=== PATIENT | female | born 2000 | race Hispanic/Latino ===

== ENCOUNTER 2019-05-02 12:55 | Emergency (ER) | payer OTHER, SELFPAY ==
--- NOTE | ~2019-05-02 | CT_ITS ---
EXAMINATION: CT abdomen pelvis w con EXAM DATE: 05/02/2019 18:43 INDICATION: Right lower quadrant pain. TECHNIQUE: Spiral CT of the abdomen and pelvis was performed following intravenous injection of 100 m L Omnipaque 350. Axial, coronal and sagittal images were reviewed. The dose-length product (DLP) fo r this examination was 742.15 mGy-cm. The exposure was tailored according to patient size (auto mA e xposure control), and iterative reconstruction (ASIR) was used as additional dose reduction technique . There is no prior study for comparison. FINDINGS: The liver, spleen, adrenal glands and pancreas are unremarkable. Gallbladder is unremarkab le. No biliary obstruction. Portal and splenic veins are patent. Kidneys enhance symmetrically. T here is no hydronephrosis. The uterus and ovaries are unremarkable, no adnexal mass. The bladder i s unremarkable. There is no retroperitoneal or pelvic lymphadenopathy. The appendix is large in caliber but does not appear obstructed and there is no adjacent inflammation . The stomach and small bowel are unremarkable. There is expected amount of colonic stool. No charles e intraperitoneal gas. The heart is normal in size. There are no pericardial or pleural effusions. The lung bases are unremarkable. There are no osteoblastic or osteolytic lesions identified. IMPRESSION: 1. No acute intra-abdominal findings. Reviewed, dictated and finalized at location A. ING MACHINE OPERATOR
[2019-05-02 14:01] VITALS: BP 127/77; PULSE 66; RESP 14; TEMP 36.6; O2SAT 98
[2019-05-02 14:19] LABS: Basophils Percent Auto 0.4 % (0.2-1.2); Eosinophils Absolute Auto 0.1 K/mm3 (0-0.3); Eosinophils Percent Auto 1.2 % (0-4.4); Hemoglobin 13.6 g/dL (12.0-15.0); Immature Granulocyte Absolute 0.02 K/mm3 (0.00-0.031); Immature Granulocyte Percent A 0.3 % (0-0.5); Lymphocytes Absolute Auto 3.44 K/mm3 (0.9-3.2); Lymphocytes Percent Auto 45.6 % (18.3-44.2); Mean Corpuscular HGB Conc 32.4 g/dl (32-36); Mean Corpuscular Hemoglobin 29.9 pg (26-34); Mean Corpuscular Volume 92.3 fl (80-100); Mean Platelet Volume 9.5 fl (7.4-10.4); Monocytes Absolute Auto 0.6 K/mm3 (0.1-0.6); Monocytes Percent Auto 7.5 % (2.6-8.5); Neutrophils Absolute Auto 3.4 K/mm3 (1.3-6.7); Platelet Count Result 318 k/mm3 (150-375); Red Blood Count 4.55 M/mm3 (4.2-5.4); Red Cell Distribution Width 12.5 % (11.5-14.5); White Blood Count 7.6 K/mm3 (4.5-10.0)
[2019-05-02 14:29] LABS: Alanine Aminotransferase 15 U/L (4-35); Albumin Level 4.3 g/dL (3.7-5.6); Alkaline Phosphatase 47 U/L (45-116); Aspartate Amino Transferase 24 U/L (14-36); Bilirubin,Total 0.3 mg/dL (0.2-1.3); Blood Urea Nitrogen 8 mg/dL (8-21); Calcium 9.2 mg/dL (8.9-10.7); Carbon Dioxide 24 mmol/L (22-30); Chloride 100 mmol/L (98-107); Estimated Glomerular Filt Rate > 60; Glucose 87 mg/dL (65-105); Lipase 47 U/L (23-300); Sodium 136 mmol/L (134-143)
--- NOTE | 2019-05-02 17:25 | ED.ABDPAIN ---
HPI - Abdominal Pain General Chief Complaint: Abdominal Pain <TANYA Wang Last Filed: 05/02/19 18:55> Stated Complaint: abd pain <TANYA Wang Filed: 05/02/19 18:55> Time Seen by Provider: 05/02/19 16:37 <TANYA Wang Filed: 05/02/19 18:55> Source: patient and family <TANYA Wang Filed: 05/02/19 18:55> Mode of arrival: ambulatory <ATNYA Wang Filed: 05/02/19 18:55> Limitations: no limitations <TANYA Wang Filed: 05/02/19 18:55> History of Present Illness HPI narrative: Patient is a 18-year-old female who presents to emergency department for evaluation of right lower quadrant abdominal pain presenting from urgent care patient notes pain to the right lower quadrant that initially was epigastric periumbilical in nature patient has had a few loose stools but denies nausea or vomiting. Patient denies similar occurrence in the past. Patient has not taken anything for her symptoms patient on arrival in the room in no distress pain is worse with activity and movement <TANYA Wang Filed: 05/02/19 18:55> Related Data Home Medications: Home Medications Medication Instructions Recorded Confirmed Control Pills 05/02/19 <TANYA Wang Last Filed: 05/02/19 18:55> Allergies/Adverse Reactions: Allergies Allergy/AdvReac Type Severity Reaction Status Date / Time No Known Allergies Allergy Verified 05/02/19 11:58 <TANYA Wang Last Filed: 05/02/19 18:55> Review of Systems Review of Systems: Narrative: CONSTITUTIONAL: Denies fever, chills, or sweats. EYES: Denies redness, or discharge. ENT: Denies rhinorrhea, congestion, sore throat, or otalgia. RESPIRATORY: Denies cough or dyspnea. GASTROINTESTINAL: Denies nausea, vomiting GENITOURINARY: Denies dysuria or hematuria. SKIN: Denies rash or wound MUSCULOSKELETAL: Denies back pain, joint pain, or myalgia. NEUROLOGIC: Denies headache, or weakness. <TANYA Wang Filed: 05/02/19 18:55> [facility] Past Medical History Medical History: Medical History Hx of migraines IBS (irritable bowel syndrome) <Duane Edge PA-C - Last Filed: 05/02/19 18:55> Surgical History Surgical History: Surgical History No history of previous surgery <Duane Edge PA-C - Last Filed: 05/02/19 18:55> Social History Social History: Social History Smoking status: Never smoker Gender identity (if verbalized by the patient): Female <Duane Edge PA-C - Last Filed: 05/02/19 18:55> Exam Narrative: Exam Narrative: GENERAL: Well-appearing, well-nourished, and in no acute distress. HEAD: Normocephalic, atraumatic. EYES: PERRLA and EOMI. ENT: Nares clear, no rhinorrhea or epistaxis. Mucous membranes moist. Oropharynx without tonsillar hypertrophy exudate or other lesions. CHEST: Clear to auscultation. No respiratory distress. No wheezes rales or rhonchi HEART: Regular rate and rhythm. No murmur heard. Normal peripheral pulses. ABDOMEN: Soft, focal right lower quadrant tenderness to palpation, nondistended, normal active bowel sounds. EXTREMITIES: Normal range of motion. No edema. SKIN: Warm, dry, no rash. NEURO: No focal deficits. Alert and oriented x3. PSYCH: Normal mood and affect. <Duane Edge PA-C - Last Filed: 05/02/19 18:55> Course Course Emergency Course: Patient in the room in no distress aware of case findings treatment plan and diagnosis agreeing to follow-up as directed or to return if symptoms worsen <Duane Edge PA-C - Last Filed: 05/02/19 18:55> Vital Signs Vital signs: Vital Signs Temperature 97.8 F 05/02/19 14:01 Pulse Rate 66
[2019-05-02 17:36] LABS: Add Urine Microscopic? YES; Appearance Urine Clear (Clear); Bacteria Urine Trace /hpf; Bilirubin Urine Negative (Negative); Blood Urine Negative (Negative); Color Urine Yellow (Yellow); Glucose Urine UA Negative (Negative); Ketones Urine Negative (Negative); Leukocyte Esterase Ur Negative LEU/UL (Negative); Mucus Urine Moderate /lpf; Nitrate Urine Negative (Negative); Protein Urine 1+ mg/dL (Negative); RBC Urine 0-2 /hpf (0-2); Specific Grav Ur 1.029 (1.001-1.035); Squamous Epithelial Cell Urine Few /hpf (Few); Urobilinogen Urine Negative mg/dL (<2.0); WBC Urine 0-3 /hpf
[2019-05-02] MEDS: LACTATED RINGERS 1,000 ML 999 ML IV CONT (17:54)
[2019-05-02 19:18] VITALS: BP 126/80; PULSE 63; RESP 18; O2SAT 100
== END 2019-05-02 19:18 | disposition home or self-care (01) ==
PROVIDERS: Emergency Medicine; Emergency Provider General Practice
DX: R10.31 Right lower quadrant pain (principal); K58.9 Irritable bowel syndrome, unspecified
CPT/HCPCS: 36415; 74177; 80053; 81001; 81003; 81025; 83690; 85025; 96360; 99284; J7120; Q9967

== ENCOUNTER 2020-05-01 12:31 | Emergency (ER) | payer OTHER, SELFPAY ==
[2020-05-01 12:34] VITALS: BP 138/91; PULSE 60; RESP 20; TEMP 36.4; O2SAT 100
--- NOTE | 2020-05-01 12:58 | ED.URI ---
HPI - URI/Sore Throat General Chief Complaint: Upper Respiratory Infection Stated Complaint: ST Time Seen by Provider: 05/01/20 12:39 Source: patient Mode of arrival: ambulatory Limitations: no limitations History of Present Illness HPI Narrative: 19 years old female presents with headache started 1 week ago, sore throat, coughing, nasal congestion 5 days ago, tested negative for Covid and April 28, exposed to her brother who was tested positive for Covid on April 23. Patient lives with her boyfriend who is asymptomatic. Related Data Home Medications Medication Instructions Recorded Confirmed Control Pills 05/02/19 Allergies Allergy/AdvReac Type Severity Reaction Status Date / Time No Known Allergies Allergy Verified 05/01/20 12:36 Review of Systems Review of Systems: Narrative: CONSTITUTIONAL: Denies fever, chills, or sweats. EYES: Denies visual changes, redness, or discharge. ENT: Denies rhinorrhea, congestion, sore throat, or otalgia. CARDIOVASCULAR: Denies chest pain, palpitations, or edema. RESPIRATORY: Denies cough or dyspnea. GASTROINTESTINAL: Denies abdominal pain, nausea, vomiting, or diarrhea. GENITOURINARY: Denies dysuria or hematuria. SKIN: Denies rash or itching. MUSCULOSKELETAL: Denies back pain, joint pain, or myalgia. NEUROLOGIC: Denies headache, numbness, or weakness. PSYCHIATRIC: Denies anxiety or depression. [facility] Past Medical History Medical History (Updated 05/01/20 @ 14:19 by Clau Chapa MD) Hx of migraines IBS (irritable bowel syndrome) Surgical History Surgical History No history of previous surgery Social History Social History Smoking status: Never smoker Gender identity (if verbalized by the patient): Female Exam Narrative: Exam Narrative: General appearance: Well-developed, well-nourished Skin: Normal color Head: Normocephalic, nontraumatic Eyes: Clear conjunctiva ENT: Erythematous oropharynx, ears normal, nose normal Neck: Supple, nontender Chest and respiratory: Airway patent, no respiratory distress, no accessory muscle use Heart: Regular rate/rhythm Abdomen: Soft, nontender, no organomegaly, quiet bowel sounds Vascular: Normal peripheral pulses, normal capillary refill. Musculoskeletal: Normal range of motion, nontender back Neurologic: Alert and oriented ?3, [employer] MACHINE OPERATOR is normal as tested, no gross motor deficit Course Course Emergency Course: Stable Vital Signs Vital signs: Vital Signs Temperature 36.4 C 05/01/20 12:34 Pulse Rate 60 05/01/20 12:34 Respiratory Rate 20 05/01/20 12:34 Blood Pressure 138/91 H 05/01/20 12:34 Pulse Oximetry 100 05/01/20 12:34 Temperature 36.4 C 05/01/20 12:34 Pulse Rate 60 05/01/20 12:34 Respiratory Rate 20 05/01/20 12:34 Blood Pressure 138/91 H 05/01/20 12:34 Pulse Oximetry 100 05/01/20 12:34 MDM - URI/Sore Throat MDM Narrative Medical decision making narrative: Viral pharyngitis is my concern. Rapid strep, mono and Covid test ordered Lab Data Labs: Lab Results 05/01/20 05/01/20 Range/Units 13:00 13:11 Monoscreen Negative (Negative) SARS-CoV-2 RNA (RT-PCR) Pending Strep Screen Presumptive Negative *(Reference Range: Negative)* Critical Care Time Critical Care Time Critical Care Time: No Discharge Plan Discharge Clinical Impression: Pharyngitis Qualifiers: Pharyngitis/tonsillitis etiology: unspecified etiology Qualified Code(s): J02.9 - Acute pharyngitis, unspecified Patient Disposition: Home, S
[2020-05-01 13:39] LABS: Monoscreen Negative (Negative); Negative Monotest Control Negative (Negative); Positive Monotest Control Positive (Positive)
[2020-05-02 00:20] LABS: SARS-CoV-2 RNA PCR Negative
== END 2020-05-01 14:39 | disposition home or self-care (01) ==
PROVIDERS: Emergency Provider Emergency Medicine
DX: J02.9 Acute pharyngitis, unspecified (principal); Z20.822 Contact with and (suspected) exposure to COVID-19; K58.9 Irritable bowel syndrome, unspecified
CPT/HCPCS: 36415; 86308; 87081; 87880; 99283; C9803; U0003; U0005